=== PATIENT | female | born 1965 | race Caucasian/White ===

== ENCOUNTER → 2016-06-14 | Outpatient (CLI) | payer MEDICAID | LOC: SP 09:16 | PROVIDERS: ATTEND Physician Assistant | DX: R60.0 Localized edema (principal) | CPT/HCPCS: 93971 ==

== ENCOUNTER 2017-11-01 22:16 | Emergency (ER) | payer MEDICAID ==
[2017-11-01 22:34] VITALS: BP 125/73
[2017-11-01] MEDS ORDERED: METHYLPREDNISOLONE INJ 125 MG/2 ML SDV IV ONE (22:46)
[2017-11-01] MEDS ORDERED: DIPHENHYDRAMINE HCL 50 MG/ML VIAL IV ONE (22:46)
[2017-11-01] MEDS ORDERED: FAMOTIDINE INJ/PF 20 MG/2 ML SDV IV ONE (22:47)
--- NOTE | 2017-11-01 22:52 | ER Document Report ---
ED General - General Chief Complaint: Possible allergic reaction Stated Complaint: POSSIBLE ALLERGIC REACTION Time Seen by Provider: 11/01/17 22:39 Mode of Arrival: Medic Information source: Patient TRAVEL OUTSIDE OF THE [place] IN LAST 30 DAYS: No - HPI Notes: Patient is a 52-year-old female history of COPD presents to the emergency department with report that at 1900 she had to now with mayonnaise which she stated tasted fine but shortly thereafter she noted she was having itching and mild swelling around the lips with an allergic reaction. The patient denies any previous allergy to seafood that she is aware of. The patient reports no difficulty breathing or chest pain. The patient was picked up by EMS that gave her intramuscular epinephrine 0.3 mg and Benadryl 25 mg IV with improvement in her symptoms. The patient denies any abdominal pain, vomiting, fever. She reports previous mild nausea. - Related Data Allergies/Adverse Reactions: Shellfish * [Shellfish] Allergy (Verified 06/04/13 10:00) Sulfa (Sulfonamide Antibiotics) Allergy (Verified 06/04/13 10:00) morphine [Morphine] Adverse Reaction (Mild, Verified 06/04/13 10:00) Unknown reaction Past Medical History - General Information source: Patient - Social History Smoking Status: Former Smoker Frequency of alcohol use: None Drug Abuse: None Lives with: Alone Family History: Reviewed & Not Pertinent - Past Medical History Cardiac Medical History: Reports: Hx Hypertension Pulmonary Medical History: Reports: Hx COPD, Hx Sleep Apnea - Hx of CPAP use at home Denies: Hx Tuberculosis Malignancy Medical History: Reports: Hx Cervical Cancer Musculoskeletal Medical History: Reports Hx Arthritis Past Surgical History: Reports: Hx Abdominal Surgery - Resection, Hx Cholecystectomy - [address] Cooley., Hx Hysterectomy - over 10 yrs ago., Hx Orthopedic Surgery - 3 back surgeries. Denies: Hx Pacemaker - Immunizations Hx Diphtheria, Pertussis, Tetanus Vaccination: Yes Review of Systems - Review of Systems Notes: REVIEW OF SYSTEMS: CONSTITUTIONAL : Denies fever, chills, or sweats. EENT: Denies eye, ear, throat, or mouth pain or symptoms. Denies nasal or sinus congestion or discharge. Denies throat, tongue, or mouth swelling or difficulty swallowing. CARDIOVASCULAR: Denies chest pain. Denies palpitations or racing or irregular heart beat. Denies ankle edema. RESPIRATORY: Denies cough, cold, or chest congestion. Denies shortness of breath. GASTROINTESTINAL: Denies abdominal pain or distention. Denies vomiting, or diarrhea. Denies blood in vomitus, stools, or per rectum. Denies black, tarry stools. Denies constipation. GENITOURINARY: Denies difficulty urinating, painful urination, burning, frequency, blood in urine, or discharge. FEMALE GENITOURINARY: Denies vaginal bleeding, heavy or abnormal periods, irregular periods. Denies vaginal discharge or odor. MUSCULOSKELETAL: Denies back or neck pain or stiffness. Denies joint pain or swelling. SKIN: Denies lesions or sores. HEMATOLOGIC : Denies easy bruising or bleeding. LYMPHATIC: Denies swollen, enlarged glands. NEUROLOGICAL: Denies confusion or altered mental status. Denies passing out or loss of consciousness. Denies dizziness or lightheadedness. Denies headache. Denies weakness or paralysis or loss of use of either side. Denies problems with gait or speech. Denies sensory loss, numbness, or tingling. Denies seizures. PSYCHIATRIC: Denies anxiety or stress. Denies depression, suicidal ideation, or homicidal ideation. ALL OTHER SYSTEMS REVIEWED AND NEGATIVE. Dictation was performed using [employer] voice recognition software Physical Exam - Vital signs Vitals: Temp Pulse Resp BP Pulse Ox 99.2 F 89 18 125/73 94 11/01/17 22:31 11/01/17 22:31 11/01/17 22:31 11/01/17 22:31 11/01/17 22:31 - Notes Notes: PHYSICAL EXAMINATION: GENERAL: Well-appearing, well-nourished and in no acute distress. HEAD: Atraumatic, normocephalic. EYES: Pupils equal round and reactive to light, extraocular movements intact, conjunctiva are normal. Minimal eyelid edema which patient states is currently improved. ENT: Nares patent, oropharynx clear without exudates. Moist mucous membranes. NECK: Normal range of motion, supple without lymphadenopathy LUNGS: Breath sounds coarse bilaterally with scant expiratory wheeze, but patient denies any dyspnea. HEART: Regular rate and rhythm without murmurs ABDOMEN: Soft, nontender, nondistended abdomen. No guarding, no rebound. No masses appreciated. Female : deferred Musculoskeletal: Normal range of motion, no pitting or edema. No cyanosis. NEUROLOGICAL: Cranial nerves grossly intact. Normal speech, normal gait. Normal sensory, motor exams PSYCH: Normal mood, normal affect. SKIN: Warm, Dry, normal turgor, no rashes or lesions noted. Course - Re-evaluation Re-evalutation: 11/01/17 22:51 Patient was given IV Benadryl and IV Solu-Medrol. 11/01/17 23:52 On repeat exam patient had stable vital signs and no recurrence of rash and felt stable for discharge. - Vital Signs Vital signs: Temp Pulse Resp BP Pulse Ox 99.2 F 89 18 125/73 94 11/01/17 22:31 11/01/17 22:31 11/01/17 22:31 11/01/17 22:31 11/01/17 22:31 Discharge - Discharge Clinical Impression: Allergic reaction Qualifiers: Encounter type: initial encounter Qualified Code(s): T78.40XA - Allergy, unspecified, initial encounter Condition: Stable Disposition: HOME, SELF-CARE Instructions: Acute Allergic Reaction ([facility]) Additional Instructions: Take Benadryl 25 up to 50 mg every 4 hours as needed for itching or allergic symptoms. Return to the emergency department case of difficulty breathing or oropharyngeal swelling. Prescriptions: Prednisone [Deltasone 10 mg Tablet] 10 mg PO ASDIR PRN #21 tablet PRN Reason: Referrals: KAYLA MOON PA-C [Primary Care Provider] - Follow up as needed
[2017-11-01] MEDS ORDERED: OXYCODONE HCL IR 5 MG TABLET PO ONE (23:50)
== END 2017-11-02 00:15 | disposition home or self-care (01) ==
LOC: ER 22:16
DX: T78.40XA Allergy, unspecified, initial encounter (principal); X58.XXXA Exposure to other specified factors, initial encounter; J44.9 Chronic obstructive pulmonary disease, unspecified; I10 Essential (primary) hypertension; Z88.6 Allergy status to analgesic agent; Z88.2 Allergy status to sulfonamides; Z91.013 Allergy to seafood; Z87.891 Personal history of nicotine dependence; Z85.41 Personal history of malignant neoplasm of cervix uteri; Z90.49 Acquired absence of other specified parts of digestive tract; Z90.710 Acquired absence of both cervix and uterus
CPT/HCPCS: 99283; 96374; 96375; J1200; J2930; S0028; J3490

== ENCOUNTER 2018-03-22 18:44 | Emergency (ER) | payer MEDICAID ==
[2018-03-22] MEDS ORDERED: HYDROMORPHONE HCL INJ/PF 2 MG/ML AMPULE IV ONE (21:55)
[2018-03-22] MEDS ORDERED: ONDANSETRON HCL INJ/PF 4 MG/2 ML SDV IV ONE (21:55)
[2018-03-22 22:14] LABS: ABSOLUTE BASOPHILS # (AUTO) 0.1 10^3/uL (0.0-0.2); ABSOLUTE EOSINOPHILS # (AUTO) 0.5 10^3/uL (0.0-0.6); ABSOLUTE LYMPHOCYTES (AUTO) 1.9 10^3/uL (0.5-4.7); ABSOLUTE MONOCYTES (AUTO) 0.8 10^3/uL (0.1-1.4); ABSOLUTE NEUT (AUTO) 8.2 10^3/uL (1.7-8.2); BASOPHILS % (AUTO) 0.8 % (0-2); HEMATOCRIT 40.4 % (36.0-47.0); HEMOGLOBIN 13.8 g/dL (12.0-15.5); LYMPHOCYTES % (AUTO) 16.7 % (13-45); MEAN CORPUSCULAR HEMOGLOBIN 30.5 pg (27.0-33.4); MEAN CORPUSCULAR HGB CONC 34.1 g/dL (32.0-36.0); MEAN CORPUSCULAR VOLUME 90 fl (80-97); MONOCYTES % (AUTO) 7.2 % (3-13); PLATELET COUNT 563 10^3/uL (150-450); RED BLOOD COUNT 4.52 10^6/uL (3.72-5.28); RED CELL DISTRIBUTION WIDTH 14.7 % (11.5-14.0); SEGMENTED NEUTROPHILS % (AUTO) 71.3 % (42-78); TOTAL CELLS COUNTED % (AUTO) 100 %; WHITE BLOOD COUNT 11.6 10^3/uL (4.0-10.5)
[2018-03-22 22:26] LABS: ALANINE AMINOTRANSFERASE 10 U/L (9-52); ALBUMIN 4.3 g/dL (3.5-5.0); ALKALINE PHOSPHATASE 126 U/L (38-126); ANION GAP 12 (5-19); ASPARTATE AMINO TRANSFERASE 17 U/L (14-36); BILIRUBIN,DIRECT 0.3 mg/dL (0.0-0.4); BILIRUBIN,TOTAL 0.4 mg/dL (0.2-1.3); BLOOD UREA NITROGEN 18 mg/dL (7-20); CALCIUM 10.7 mg/dL (8.4-10.2); CARBON DIOXIDE 26 mmol/L (22-30); CHLORIDE 100 mmol/L (98-107); GLUCOSE 105 mg/dL (75-110); POTASSIUM 4.6 mmol/L (3.6-5.0)
--- NOTE | 2018-03-22 22:26 | RADIOLOGY REPORT (SQ) ---
EXAM DESCRIPTION: CT ABDOMEN PELVIS WITHOUT IV CONTRAST COMPLETED DATE/TME: 03/22/2018 21:54 CLINICAL HISTORY: 52 years, Female, left flank pain/ ? kidney stone/ COMPARISON: 11/07/2015 CT TECHNIQUE: 295 Images stored on PACS. All CT scanners at this facility use dose modulation, iterative reconstruction, and/or weight based dosing when appropriate to reduce radiation dose to as low as reasonably achievable (ALARA). [facility]: Dose Right [facility]: CareDose [facility]: Dose Right [facility]: Teradose 4D [facility]: [employer] LIMITATIONS: None. FINDINGS: Limited evaluation of the lung bases shows partial visualization of a soft tissue mass in the left lung base, abutting the left heart border. This measures approximately 7.5 x 5.4 cm. There are adjacent satellite nodules and reticulonodular change. Findings are concerning for malignancy. Osseous structures show postsurgical changes of the lumbar spine. Osseous structures are otherwise grossly intact. The liver, spleen, adrenal glands, pancreas, kidneys are unremarkable. Negative for urinary tract calculus or hydronephrosis. The gallbladder is present. Large amount stool in the colon. No gross evidence for bowel obstruction. Surgical clips in the pelvis. Per history given, the patient is status post hysterectomy. The previously noted cystic mass in the right hemipelvis described on prior CT is not present on this exam. What appears to be a normal appendix. Mild atheromatous change. IMPRESSION: Negative for acute intra-abdominal/pelvic process. However, there is partial visualization of a large soft tissue mass of the left lung base abutting the left heart border, highly concerning for malignancy. Tissue diagnosis recommended. TECHNICAL DOCUMENTATION: Quality ID # [id number]: Final reports with documentation of one or more dose reduction techniques (e.g., Automated exposure control, adjustment of the mA and/or kV according to patient size, use of iterative reconstruction technique) copyright 2011 [employer]- All Rights Reserved
[2018-03-23 00:40] LABS: APPEARANCE,URINE SLIGHTLY-CLOUDY; BILIRUBIN,URINE NEGATIVE (NEGATIVE); COLOR,URINE YELLOW; GLUCOSE, URINE NEGATIVE (NEGATIVE); KETONES,URINE NEGATIVE (NEGATIVE); LEUKOCYTE ESTERASE,URINE NEGATIVE (NEGATIVE); NITRITE,URINE NEGATIVE (NEGATIVE); PROTEIN,URINE NEGATIVE (NEGATIVE); URINE SPECIFIC GRAVITY 1.015; UROBILINOGEN,URINE NEGATIVE mg/dL (<2.0)
[2018-03-23] MEDS ORDERED: HYDROMORPHONE HCL INJ/PF 2 MG/ML AMPULE IV ONE (01:22)
[2018-03-23] MEDS ORDERED: LORAZEPAM INJ 2 MG/1 ML VIAL IV ONE ×3 (01:22→02:41)
--- NOTE | 2018-03-23 01:31 | ER Document Report ---
ED General - General Chief Complaint: Back Pain Stated Complaint: BACK PAIN Time Seen by Provider: 03/22/18 21:37 Mode of Arrival: Medic Information source: Patient Notes: Patient is a 52-year-old female comes into the emergency room by EMS with a complaint of left-sided low back and flank pain. Patient states that when she takes a deep breath or when she takes and coughs she gets a severe pain in her lower left back. She has had 3 histories of back surgeries and is currently in pain management for that. She states this pain is nothing like she is ever experienced before. Also states that when she lays on her right side it seems to dissipate the pain for a while. She has had nausea but no vomiting. She denies any traumatic events. And she was just laying down when the pain earlene denly hit her. She has a history of hypertension heart arrhythmias but she does not have a history of diabetes. She does continue to smoke a pack of cigarettes a day. TRAVEL OUTSIDE OF THE [place] IN LAST 30 DAYS: No - HPI Onset: This morning Onset/Duration: Sudden, Persistent, Worse Quality of pain: Sharp, Stabbing, Throbbing Severity: Severe Pain Level: 5 Associated symptoms: Nonproductive cough, Nausea Exacerbated by: Standing, Movement, Coughing, Deep breathing Relieved by: Denies, Remaining still, Other - On the right side Similar symptoms previously: No Recently seen / treated by doctor: No - Related Data Allergies/Adverse Reactions: Shellfish * [Shellfish] Allergy (Verified 03/22/18 18:49) Sulfa (Sulfonamide Antibiotics) Allergy (Verified 03/22/18 18:49) morphine [Morphine] Adverse Reaction (Mild, Verified 03/22/18 18:49) Unknown reaction Past Medical History - General Information source: Patient - Social History Smoking Status: Current Every Day Smoker Cigarette use (# per day): Yes - 1 pack a day Smoking Education Provided: Yes Frequency of alcohol use: Occasional Drug Abuse: None Lives with: Alone Family History: Reviewed & Not Pertinent Patient has suicidal ideation: No Patient has homicidal ideation: No - Past Medical History Cardiac Medical History: Reports: Hx Hypertension Pulmonary Medical History: Reports: Hx COPD, Hx Sleep Apnea - Hx of CPAP use at home Denies: Hx Tuberculosis Renal/ Medical History: Denies: Hx Peritoneal Dialysis Malignancy Medical History: Reports: Hx Cervical Cancer Musculoskeletal Medical History: Reports Hx Arthritis Past Surgical History: Reports: Hx Abdominal Surgery - Resection, Hx Cholecystectomy - [address] Co[address]., Hx Hysterectomy, Hx Orthopedic Surgery - 3 back surgeries. Denies: Hx Pacemaker - Immunizations Hx Diphtheria, Pertussis, Tetanus Vaccination: Yes Review of Systems - Review of Systems Constitutional: No symptoms reported EENT: No symptoms reported Cardiovascular: No symptoms reported Respiratory: See HPI, Cough, Hurts to breathe Gastrointestinal: Nausea Genitourinary: No symptoms reported Female Genitourinary: No symptoms reported Musculoskeletal: See HPI, Back pain Skin: No symptoms reported Hematologic/Lymphatic: No symptoms reported Neurological/Psychological: No symptoms reported -: Yes All other systems reviewed and negative Physical Exam - Vital signs Vitals: Temp Pulse Resp BP Pulse Ox 99.1 F 96 16 134/103 H 97 03/22/18 18:56 03/22/18 18:56 03/22/18 18:56 03/22/18 18:56 03/22/18 18:56 Interpretation: Hypertensive - Notes Notes: PHYSICAL EXAMINATION: GENERAL: Patient is a well-nourished well-developed 52-year-old female who on physical exam this evening is in no apparent distress but does appear to be in moderate amount of pain and discomfort. She is having a difficult time finding a position of comfort. HEAD: Atraumatic, normocephalic. EYES: Pupils equal round and reactive to light, extraocular movements intact, conjunctiva are normal. ENT: Nares patent, oropharynx clear without exudates. Moist mucous membranes. NECK: Normal range of motion, supple without lymphadenopathy LUNGS: auscultation patient's lung batres show she has bilateral breath sounds with breath sounds decreased moderately throughout all batres. There is no notable rhonchi, wheeze, rales. HEART: Regular rate and rhythm without murmurs ABDOMEN: Soft, nontender, No guarding, no rebound. No masses appreciated. Percussion of patient's left flank area down to the lower back shows a moderate to pronounced response to pain. The patient supine and palpation of the left upper and lower quads while compressing from the posterior shows increased ervin unt of tenderness and pain to the upper and lower quads of the abdomen. Patient's bowel sounds are present in all 4 quads. There is no peritoneal signs. Female : deferred Musculoskeletal: Examination patient's area of concern is her left lower back area. Palpation of the lumbar spine area does not produce any discomfort or pain in her no paravertebral spasms are felt. Moving to the left and slightly up patient exhibits moderate amount of discomfort to percussion as well as to palpation against pressure. NEUROLOGICAL:. Normal speech, normal gait. Normal sensory, motor exams PSYCH: Normal mood, normal affect. SKIN: Warm, Dry, normal turgor, no rashes or lesions noted. Course - Re-evaluation Re-evalutation: 03/23/18 01:23 I discussed my findings with Dr. Valentina Spann and my concerns about patient's incidental findings. Patient CT shows that they saw incidentally a soft tissue mass in the left lung base abutting the left heart border. This measures approximately 7.5 x 5.4 cm and there are adjacent satellite nodules and reticulonodular change. Findings are concerning for malignancy. I went to sit down at the patient's bedside and started out the conversation by talking about the possibilities of why she is hurting in the left side of her low back. She also was noted to have some blood in her urine which did not show signs of infection. Patient has had a hysterectomy so she should not have any blood in that area unless it is coming from the bladder. Without infection having concerns about that being possible site of the possible cancer or any other metastatic site.. Patient does smoke fairly heavily and continues to smoke a pack a day. I did not cover why the blood is in her urine with her tonight. I did cover with her that she has a lot of stool and that we did find this incidental mass finding that is going to need further investigation. Patient started crying when I started telling her this and then she stopped in the middle and stated she thought something was wrong. She is been experiencing some pain in her lung for the past couple of weeks but she did not want to approach it. Her mother of lung cancer and her sister has just been diagnosed with lung cancer. So patient is highly aware of the possibilities at this time. We had a long talk that there is no need for me to do this emergently that she can follow-up with her primary care doctor who is at [facility]. She will go see him first thing today when she wakes up. I am going to give her a copy of the CT report and her lab work and I am going to going to give her a dose of pain medication and a small dose of Ativan so she can sleep tonight. She is going to use milk of magnesia to clean herself out. After sitting down and having this discussion patient feels I think a little more relieved that she is been forced to give into the idea that there is something going on. So her low back pain may be caused by this mass that is causing referred pain when she takes a deep breath I do not know at this point. She is on pain medication currently and goes the pain management so we do not have to write for any more of that medication. She is to follow-up with her primary first thing today when she wakes up. 03/23/18 13:14 - Vital Signs Vital signs: Temp Pulse Resp BP Pulse Ox 98.5 F 103 H 16 122/83 97 03/23/18 02:37 03/23/18 02:37 03/22/18 18:56 03/23/18 02:37 03/23/18 02:37 - Laboratory Result Diagrams: 03/22/18 17:59 03/22/18 17:59 Laboratory results interpreted by me: 03/22/18 03/22/18 03/23/18 17:59 17:59 00:10 WBC 11.6 H RDW 14.7 H Plt Count 563 H Est GFR (Non-Af Amer) 58 L Calcium 10.7 H Urine Blood MODERATE H Discharge - Discharge Clinical Impression: Lung mass Back pain Qualifiers: Back pain location: low back pain Chronicity: acute Back pain laterality: left Sciatica presence: without sciatica Qualified Code(s): M54.5 - Low back pain Constipation Qualifiers: Constipation type: drug induced constipation Qualified Code(s): K59.03 - Drug induced constipation Condition: Stable Disposition: HOME, SELF-CARE Instructions: Constipation ([facility]), Hematuria ([facility]), Low Back Pain ([facility]), Muscle Strain ([facility]), Oral Narcotic Medication ([facility]) Additional Instructions: Constipation Constipation is a common problem. It is especially likely as you get older. Constipation is a common cause of abdominal pain, but sometimes causes no symptoms at all. Causes of constipation include certain medications, deh ydration, diets, inactivity, and low-fiber intake. Rarely, it can be a symptom of underlying disease. The physician has evaluated you for this. Avoid constipation by eating a diet high in fiber, fruits, and vegetables. Drink plenty of liquids. Get regular exercise. If possible, avoid const ipating medicines like narcotic pain medication. Some vitamin tablets can cause constipation. Stool softeners may be needed for difficult cases. An excellent stool softener is Konsyl which is available at [employer], and [employer]. Just add a teaspoon to a glass of pineapple or orange juice daily or twice a day if needed. Laxatives are useful for occasional constipation. You should use them only when necessary. Too-frequent use can make your bowels dependent on them. Some over the counter laxatives available without prescription are: Dulcolax, 5 mg pill or 10 mg suppository. Citrate of Magnesia, 4-5 ounces a day for a day or two For acute constipation, Fleet's Enemas and Dulcolax suppositories are helpful. Chronic, residential use of laxatives or enemas is not a good idea. Your bowel may become dependant on them. You do not need to have a bowel movement every day. Many people do fine with a bowel movement every three or four days. You should call your doctor or return for re-evaluation if you pass blood in the stool, or if you develop fever or increasing abdominal pain. As we discussed for the constipation Get generic milk of magnesia on your home tonight. It comes with a measuring cup on top of the looks like a shot Glass. That is 30 mL's drink you 2 of those before going to bed followed by 12 ounces of warm tap water. In the morning when you wake up drink a hot coffee or tea this will stimulate you to have a nice fluid bowel movement. By moving the stool around hopefully will reduce the discomfort and pain you feel in your back. As we discussed the incidental finding of the lung mass on your CT is important that you follow-up with your primary care provider for further intervention. You will probably need a PET scan as well as a CTA of the chest for further clarification of the type of mass that is. And will probably also need a biopsy. At this point it is imperative that you do this as soon as possible but is not emergent tonight for us to do here. You have a primary care provider at [facility] contact them first thing tomorrow and take in with you the CT report that I have given you with that was done here and also discussed your constipation and the back pain that is a little unusual. Should you have any other concerns or problems please do not hesitate to return to ER. Forms: Elevated Blood Pressure, Smoking Cessation Education Referrals: AMIRA LEAL MD [Primary Care Provider] - Follow up as needed
[2018-03-23 03:09] VITALS: BP 122/83
== END 2018-03-23 02:55 | disposition home or self-care (01) ==
LOC: ER 18:44
DX: R91.8 Other nonspecific abnormal finding of lung field (principal); R10.9 Unspecified abdominal pain; M54.5 Low back pain; K59.03 Drug induced constipation; R05 Cough; R06.00 Dyspnea, unspecified; F17.210 Nicotine dependence, cigarettes, uncomplicated; I10 Essential (primary) hypertension; Z88.2 Allergy status to sulfonamides; Z88.6 Allergy status to analgesic agent; Z90.49 Acquired absence of other specified parts of digestive tract
CPT/HCPCS: 96376; 99284; 96374; 96375; 36415; 85025; 80053; 81001; 74176; J1170 ×2; J2060; J2405

== ENCOUNTER 2018-06-09 16:03 | Inpatient (IN) | payer MEDICAID ==
[2018-06-09] MEDS ORDERED: NORMAL SALINE 1000 ML 1,000 ML IV ONE (16:48)
[2018-06-09] MEDS ORDERED: IPRATROPIUM/ALBUTEROL 0.5-2.5 MG/3 ML AMPUL NEB ONE (16:49)
[2018-06-09] MEDS ORDERED: ALBUTEROL SULFATE 0.083% NEB 2.5 MG/3 ML AMPUL NEB ONE (16:49)
[2018-06-09] MEDS ORDERED: METHYLPREDNISOLONE INJ 125 MG/2 ML SDV IV ONE (16:49)
[2018-06-09 16:52] LABS: ALANINE AMINOTRANSFERASE 37 U/L (9-52); ALBUMIN 3.2 g/dL (3.5-5.0); ALKALINE PHOSPHATASE 356 U/L (38-126); ANION GAP 14 (5-19); ASPARTATE AMINO TRANSFERASE 36 U/L (14-36); BILIRUBIN,DIRECT 0.4 mg/dL (0.0-0.4); BILIRUBIN,TOTAL 0.5 mg/dL (0.2-1.3); BLOOD UREA NITROGEN 13 mg/dL (7-20); CALCIUM 9.4 mg/dL (8.4-10.2); CARBON DIOXIDE 27 mmol/L (22-30); CHLORIDE 91 mmol/L (98-107); GLUCOSE 136 mg/dL (75-110); POTASSIUM 4.2 mmol/L (3.6-5.0); SODIUM 131.5 mmol/L (137-145); TOTAL PROTEIN 6.3 g/dL (6.3-8.2)
[2018-06-09] MEDS ORDERED: CEFTRIAXONE INJ 1000 MG VIAL IV ONE (16:55)
--- NOTE | 2018-06-09 16:55 | ER Document Report ---
ED General - General Chief Complaint: Breathing Difficulty Stated Complaint: DIFFICULTY BREATHING Time Seen by Provider: 06/09/18 16:30 Primary Care Provider: AMIRA LEAL MD [Primary Care Provider] - Follow up as needed TRAVEL OUTSIDE OF THE [place] IN LAST 30 DAYS: No - HPI Notes: Patient is a 52-year-old female that presents to the emergency department for chief complaint of chest pain and shortness of breath. Patient states she was recently diagnosed with lung cancer on the left in March 2018. She has not started chemotherapy yet. She reports being on 2 L nasal cannula oxygen at home. She states she has been progressively getting more short of breath over the last few days however became significantly worse today. She states she has a new pain on the right side of her chest under her right breast. The pain is sharp and worse with movement and breathing. She denies history of DVT/PE. Patient denies being on blood thinning medications. She has used her albuterol inhaler 2 times today with minimal short-term improvement of symptoms. Past Medical History: Lung cancer Past Surgical History: Left lung biopsy Social History: Reviewed in chart Family History: Reviewed and noncontributory for presenting illness Allergies: Reviewed, see documented allergy list. REVIEW OF SYSTEMS: CONSTITUTIONAL : No fever No chills No diaphoresis No recent illness EENT: No vision changes No congestion No sore throat CARDIOVASCULAR: chest pain No palpitations RESPIRATORY: shortness of breath cough difficulty breathing GASTROINTESTINAL: No abdominal pain No nausea No vomiting No diarrhea GENITOURINARY: No dysuria No hematuria No difficulty urinating MUSCULOSKELETAL: No back pain No leg pain No arm pain SKIN: No rashes No lesions LYMPHATIC: No swollen, enlarged glands. NEUROLOGICAL: No lightheadedness No headache No weakness No paresthesias PSYCHIATRIC: No anxiety No depression PHYSICAL EXAMINATION: Vital signs reviewed, nursing noted reviewed. GENERAL: Well-appearing, well-nourished and in moderate acute distress. HEAD: Atraumatic, normocephalic. EYES: Eyes appear normal, extraocular movements intact, sclera anicteric, conjunctiva are normal. ENT: nares patent, oropharynx clear without exudates. Moist mucous membranes. NECK: Normal range of motion, supple without lymphadenopathy LUNGS: Breath sounds diminished with expiratory wheezing. Moderate accessory muscle use and prolonged expiratory phase. Tachypneic. Conversationally dyspneic. HEART: Tachycardic rate and regular rhythm without murmurs ABDOMEN: Soft, nontender, normoactive bowel sounds. No rebound, guarding, or rigidity. No masses appreciated. EXTREMITIES: Nontender, good range of motion, right leg pitting edema, normal left leg. NEUROLOGICAL: No focal neurological deficits. Moves all extremities spontaneously Motor and sensory grossly intact on exam. PSYCH: Anxious SKIN: Warm, Dry, normal turgor, no rashes or lesions noted on exposed skin - Related Data Allergies/Adverse Reactions: Shellfish * [Shellfish] Allergy (Verified 03/22/18 18:49) Sulfa (Sulfonamide Antibiotics) Allergy (Verified 03/22/18 18:49) morphine [Morphine] Adverse Reaction (Mild, Verified 03/22/18 18:49) Unknown reaction Past Medical History - Social History Smoking Status: Unknown if Ever Smoked Family History: Reviewed & Not Pertinent - Past Medical History Cardiac Medical History: Reports: Hx Hypertension Pulmonary Medical History: Reports: Hx COPD, Hx Sleep Apnea - Hx of CPAP use at home Denies: Hx Tuberculosis Renal/ Medical History: Denies: Hx Peritoneal Dialysis Malignancy Medical History: Reports: Hx Cervical Cancer Musculoskeletal Medical History: Reports Hx Arthritis Past Surgical History: Reports: Hx Abdominal Surgery - Resection, Hx Cholecystectomy - [address] Cooley., Hx Hysterectomy, Hx Orthopedic Surgery - 3 back surgeries. Denies: Hx Pacemaker - Immunizations Hx Diphtheria, Pertussis, Tetanus Vaccination: Yes Physical Exam - Vital signs Vitals: Temp Resp 99.0 F 22 H 06/09/18 16:14 06/09/18 16:14 Course - Re-evaluation Re-evalutation: 06/09/18 16:54 Vitals reviewed. Nursing notes reviewed. Patient is oxygenating on 3 L nasal cannula. She does have increased work of breathing. Patient received 125 mg of Solu-Medrol, 200 mcg of fentanyl, 1 g p.o. Ativan, 4 mg IV Zofran, 975 mg of Tylenol, and one DuoNeb by EMS prior to arrival in the emergency room. Patient will be given more albuterol and DuoNeb for her increased wheezing and shortness of breath. She was also given aspirin for her complaint of chest pain. She is tachycardic and has a temperature of 99 after receiving Tylenol. I am concerned for sepsis in this patient. Lactate and blood cultures have been ordered. Patient started on IV fluids and broad-spectrum antibiotics. She does have asymmetric swelling of her lower extremities and a new diagnosis of cancer which is concerning for underlying DVT/PE. Patient states she always has asymmetric swelling of her legs because of a cancer in the right leg when she was 31 years old. She denies any change in the appearance of her right leg edema today. 06/09/18 20:[address] of the chest shows no pulmonary embolism. She does have a large loculated left pleural effusion which is likely causing her dyspnea. ABG shows no acute hypoxia however she has had a moderate amount of increased work of breathing, her respiratory status has improved while in the emergency room. She is mildly hypercapnic with no acid-base disturbance. Patient's troponin is negative and her chest pain is also likely related to this large effusion, I do not currently suspect ACS with her normal appearing EKG and negative troponin. Patient's blood work also shows a significant thrombocytosis and new anemia. Laboratory 06/09/18 06/09/18 06/09/18 16:25 16:25 17:09 WBC 14.4 H RBC 3.17 L Hgb 8.8 L Hct 26.4 L MCV 83 MCH 27.6 MCHC 33.2 RDW 16.1 H Plt Count 1028 H* Total Counted 100 Seg Neutrophils % Not Reportable Seg Neuts % (Manual) 97 H Lymphocytes % Not Reportable Lymphocytes % (Manual) 2 L Monocytes % Not Reportable Monocytes % (Manual) 1 L Eosinophils % Not Reportable Eosinophils % (Manual) 0 Basophils % Not Reportable Basophils % (Manual) 0 Absolute Neutrophils Not Reportable Abs Neuts (Manual) 14.0 H Absolute Lymphocytes Not Reportable Abs Lymphs (Manual) 0.3 L Absolute Monocytes Not Reportable Abs Monocytes (Manual) 0.1 Absolute Eosinophils Not Reportable Absolute Eos (Manual) 0.0 Absolute Basophils Not Reportable Abs Basophils (Manual) 0.0 Platelet Comment INCREASED Poikilocytosis 1+ Anisocytosis 1+ Tear Drop Cells SLIGHT Ovalocytes SLIGHT PT INR Carbonic Acid HCO3/H2CO3 Ratio ABG pH ABG pCO2 ABG pO2 ABG HCO3 ABG Total CO2 ABG O2 Saturation ABG Base Excess FiO2 Sodium 131.5 L Potassium 4.2 Chloride 91 L Carbon Dioxide 27 Anion Gap 14 BUN 13 Creatinine 0.54 Est GFR ( Amer) > 60 Est GFR (Non-Af Amer) > 60 Glucose 136 H Lactic Acid Calcium 9.4 Total Bilirubin 0.5 Direct Bilirubin 0.4 Neonat Total Bilirubin Not Reportable Neonat Direct Bilirubin Not Reportable Neonat Indirect Bili Not Reportable AST 36 ALT 37 Alkaline Phosphatase 356 H Troponin I < 0.012 Total Protein 6.3 Albumin 3.2 L Urine Color Urine Appearance Urine pH Ur Specific Sparkman Urine Protein Urine Glucose (UA) Urine Ketones Urine Blood Urine Nitrite Urine Bilirubin Urine Urobilinogen Ur Leukocyte Esterase Urine WBC (Auto) Urine RBC (Auto) Squamous Epi Cells Auto Urine Ascorbic Acid 06/09/18 06/09/18 06/09/18 17:09 17:17 17:22 WBC RBC Hgb Hct MCV MCH MCHC RDW Plt Count Total Counted Seg Neutrophils % Seg Neuts % (Manual) Lymphocytes % Lymphocytes % (Manual) Monocytes % Monocytes % (Manual) Eosinophils % Eosinophils % (Manual) Basophils % Basophils % (Manual) Absolute Neutrophils Abs Neuts (Manual) Absolute Lymphocytes Abs Lymphs (Manual) Absolute Monocytes Abs Monocytes (Manual) Absolute Eosinophils Absolute Eos (Manual) Absolute Basophils Abs Basophils (Manual) Platelet Comment Poikilocytosis Anisocytosis Tear Drop Cells Ovalocytes PT 15.0 INR 1.12 Carbonic Acid 1.41 H HCO3/H2CO3 Ratio 20:1 ABG pH 7.41 ABG pCO2 46.7 H ABG pO2 130.3 H ABG HCO3 29.2 H ABG Total CO2 30.6 H ABG O2 Saturation 98.6 H ABG Base Excess 3.9 FiO2 3L Sodium Potassium Chloride Carbon Dioxide Anion Gap BUN Creatinine Est GFR ( Amer) Est GFR (Non-Af Amer) Glucose Lactic Acid 1.3 Calcium Total Bilirubin Direct Bilirubin Neonat Total Bilirubin Neonat Direct Bilirubin Neonat Indirect Bili AST ALT Alkaline Phosphatase Troponin I Total Protein Albumin Urine Color Urine Appearance Urine pH Ur Specific Sparkman Urine Protein Urine Glucose (UA) Urine Ketones Urine Blood Urine Nitrite Urine Bilirubin Urine Urobilinogen Ur Leukocyte Esterase Urine WBC (Auto) Urine RBC (Auto) Squamous Epi Cells Auto Urine Ascorbic Acid 06/09/18 20:00 WBC RBC Hgb Hct MCV MCH MCHC RDW Plt Count Total Counted Seg Neutrophils % Seg Neuts % (Manual) Lymphocytes % Lymphocytes % (Manual) Monocytes % Monocytes % (Manual) Eosinophils % Eosinophils % (Manual) Basophils % Basophils % (Manual) Absolute Neutrophils Abs Neuts (Manual) Absolute Lymphocytes Abs Lymphs (Manual) Absolute Monocytes Abs Monocytes (Manual) Absolute Eosinophils Absolute Eos (Manual) Absolute Basophils Abs Basophils (Manual) Platelet Comment Poikilocytosis Anisocytosis Tear Drop Cells Ovalocytes PT INR Carbonic Acid HCO3/H2CO3 Ratio ABG pH ABG pCO2 ABG pO2 ABG HCO3 ABG Total CO2 ABG O2 Saturation ABG Base Excess FiO2 Sodium Potassium Chloride Carbon Dioxide Anion Gap BUN Creatinine Est GFR ( Amer) Est GFR (Non-Af Amer) Glucose Lactic Acid Calcium Total Bilirubin Direct Bilirubin Neonat Total Bilirubin Neonat Direct Bilirubin Neonat Indirect Bili AST ALT Alkaline Phosphatase Troponin I Total Protein Albumin Urine Color YELLOW Urine Appearance CLEAR Urine pH 6.0 Ur Specific Sparkman 1.020 Urine Protein NEGATIVE Urine Glucose (UA) NEGATIVE Urine Ketones NEGATIVE Urine Blood SMALL H Urine Nitrite NEGATIVE Urine Bilirubin NEGATIVE Urine Urobilinogen NEGATIVE Ur Leukocyte Esterase NEGATIVE Urine WBC (Auto) 1 Urine RBC (Auto) 3 Squamous Epi Cells Auto 2 Urine Ascorbic Acid NEGATIVE Chest X-Ray 06/09/18 16:30 IMPRESSION: Moderate size left pleural effusion. Chest/Abdomen CTA 06/09/18 16:50 IMPRESSION: 1. Large, loculated left-sided pleural effusion. Atelectasis in the left lung base with no definite mass lesions identified, however recommend reimaging after resolution to ensure no underlying mass. 2. No evidence of pulmonary embolus. 06/09/18 20:26 Patient's care was discussed with Dr. Banuelos who feel she is requiring a facility capable of doing VATS because of the large effusion and loculations. Patient's oncologist Dr. Jeffrey is at [facility]. She will be transferred to [facility] for further medical management and likely VATS procedure for her symptomatic large left pleural effusion. Patient in agreement with this plan of care. 06/09/18 21:04 Patient's care discussed with Dr. Ramsey at [facility] who accepts patient for transfer. - Vital Signs Vital signs: Temp Pulse Resp BP Pulse Ox 97.8 F 15 149/92 H 98 06/09/18 20:17 06/09/18 20:01 06/09/18 20:00 06/09/18 20:01 - Laboratory Result Diagrams: 06/09/18 17:09 06/09/18 16:25 Laboratory results interpreted by me: 06/09/18 06/09/18 06/09/18 16:25 17:09 17:22 WBC 14.4 H RBC 3.17 L Hgb 8.8 L Hct 26.4 L RDW 16.1 H Plt Count 1028 H* Seg Neuts % (Manual) 97 H Lymphocytes % (Manual) 2 L Monocytes % (Manual) 1 L Abs Neuts (Manual) 14.0 H Abs Lymphs (Manual) 0.3 L Carbonic Acid 1.41 H ABG pCO2 46.7 H ABG pO2 130.3 H ABG HCO3 29.2 H ABG Total CO2 30.6 H ABG O2 Saturation 98.6 H Sodium 131.5 L Chloride 91 L Glucose 136 H Alkaline Phosphatase 356 H Albumin 3.2 L Urine Blood 06/09/18 20:00 WBC RBC Hgb Hct RDW Plt Count Seg Neuts % (Manual) Lymphocytes % (Manual) Monocytes % (Manual) Abs Neuts (Manual) Abs Lymphs (Manual) Carbonic Acid ABG pCO2 ABG pO2 ABG HCO3 ABG Total CO2 ABG O2 Saturation Sodium Chloride Glucose Alkaline Phosphatase Albumin Urine Blood SMALL H - EKG Interpretation by Me Additional EKG results interpreted by me: 06/09/18 16:56 Interpreted by myself 1615: Sinus tachycardia, rate 113, normal axis, no ectopy, artifact in V1 V2, no ST elevation Discharge - Discharge Clinical Impression: Pleural effusion, left, Shortness of breath, Thrombocytosis, Hyponatremia Anemia Qualifiers: Anemia type: other cause Other causes of anemia: other cause, not classified Qualified Code(s): D64.89 - Other specified anemias Sepsis Qualifiers: Sepsis type: sepsis due to unspecified organism Qualified Code(s): A41.9 - Sepsis, unspecified organism Chest pain Qualifiers: Chest pain type: unspecified Qualified Code(s): R07.9 - Chest pain, unspecified Condition: Stable Disposition: [facility]
[2018-06-09] MEDS ORDERED: AZITHROMYCIN INJ 500 MG VIAL IV ONE (16:56)
[2018-06-09] MEDS ORDERED: ASPIRIN 81 MG TABLET, CHEWABLE PO ONE (16:57)
--- NOTE | 2018-06-09 17:10 | RADIOLOGY REPORT (SQ) ---
EXAM DESCRIPTION: CHEST SINGLE VIEW COMPLETED DATE/TIME: 06/09/2018 4:57 pm REASON FOR STUDY: dyspnea COMPARISON: 05/16/2011 and earlier EXAM PARAMETERS: NUMBER OF VIEWS: One view. TECHNIQUE: Single frontal radiographic view of the chest acquired. RADIATION DOSE: NA LIMITATIONS: None. FINDINGS: LUNGS AND PLEURA: Moderate size left pleural effusion. Right lung is clear. No pneumotho rax. MEDIASTINUM AND HILAR STRUCTURES: No masses. Contour normal. HEART AND VASCULAR STRUCTURES: Cardiac silhouette is partially obscured due to the adjacent lung path ology. Central pulmonary vasculature is normal. BONES: No acute findings. HARDWARE: None in the chest. OTHER: No other significant finding. IMPRESSION: Moderate size left pleural effusion. TECHNICAL DOCUMENTATION: JOB ID: [id number] [employer]- All Rights Reserved Reading location - IP/workstation name: [email or web address]
[2018-06-09 17:48] LABS: INTERNATIONAL RATION (INR) 1.12
[2018-06-09 17:49] LABS: ARTERIAL BLOOD BASE EXCESS 3.9 mmol/L; ARTERIAL BLOOD H2CO3 1.41 mmol/L (1.05-1.35); ARTERIAL BLOOD HCO3 29.2 mmol/L (20-24); ARTERIAL BLOOD O2 SATURATION 98.6 % (94-98); ARTERIAL BLOOD PCO2 46.7 mmHg (35-45); ARTERIAL BLOOD PH 7.41 (7.35-7.45); ARTERIAL BLOOD PO2 130.3 mmHg (80-100); ARTERIAL BLOOD TOTAL CO2 30.6 mmol/L (21-25)
[2018-06-09 17:50] LABS: HEMATOCRIT 26.4 % (36.0-47.0); HEMOGLOBIN 8.8 g/dL (12.0-15.5); MEAN CORPUSCULAR HEMOGLOBIN 27.6 pg (27.0-33.4); MEAN CORPUSCULAR HGB CONC 33.2 g/dL (32.0-36.0); MEAN CORPUSCULAR VOLUME 83 fl (80-97); RED BLOOD COUNT 3.17 10^6/uL (3.72-5.28); RED CELL DISTRIBUTION WIDTH 16.1 % (11.5-14.0); WHITE BLOOD COUNT 14.4 10^3/uL (4.0-10.5)
[2018-06-09 17:53] LABS: ARTERIAL BLOOD FIO2 3L
[2018-06-09] MEDS ORDERED: DIPHENHYDRAMINE HCL 50 MG CAPSULE PO ONE (17:56)
[2018-06-09 18:14] LABS: ABSOLUTE LYMPHOCYTES# (MANUAL) 0.3 10^3/uL (0.5-4.7); ABSOLUTE MONOCYTES # (MANUAL) 0.1 10^3/uL (0.1-1.4); BASOPHILS % (MANUAL) 0 % (0-2); EOSINOPHILS % (MANUAL) 0 % (0-6); LYMPHOCYTES % (MANUAL) 2 % (13-45); MONOCYTES % (MANUAL) 1 % (3-13); SEGMENTED NEUTROPHILS % (MAN) 97 % (42-78); TOTAL CELLS COUNTED 100
[2018-06-09 18:15] LABS: ANISOCYTOSIS 1+; OVALOCYTES SLIGHT; PLATELET COMMENT INCREASED; POIKILOCYTOSIS 1+; TEAR DROP CELLS SLIGHT
[2018-06-09] MEDS ORDERED: DIPHENHYDRAMINE HCL 50 MG/ML VIAL IV ONE (18:16)
[2018-06-09] MEDS ORDERED: FAMOTIDINE INJ/PF 20 MG/2 ML SDV IV ONE (18:16)
[2018-06-09 18:23] LABS: PLATELET COUNT 1028 10^3/uL (150-450)
[2018-06-09] MEDS ORDERED: METHYLPREDNISOLONE INJ 125 MG/2 ML SDV ONE (19:10)
--- NOTE | 2018-06-09 19:41 | RADIOLOGY REPORT (SQ) ---
EXAM DESCRIPTION: CTA CHEST COMPLETED DATE/TIME: 06/09/2018 7:24 pm REASON FOR STUDY: Breathing Diff COMPARISON: 05/14/2011 TECHNIQUE: CT scan of the chest performed using helical scanning technique with dynamic intravenous contrast injection. Images reviewed with lung, soft tissue and bone windows. Reconstructed coronal and sagittal MPR images reviewed. Additional 3 dimensional post-processing performed to develop Maximal Intensity Projection images (CT P). All images stored on PACS. All CT scanners at this facility use dose modulation, iterative reconstruction, and/or weight based d osing when appropriate to reduce radiation dose to as low as reasonably achievable (ALARA). [facility]: Dose Right [facility]: CareDose [facility]: Dose Right [facility]: Teradose 4D [facility]: [employer]zCentral CONTRAST TYPE AND DOSE: contrast/concentration: Isovue 350.00 mg/ml; Total Contrast Delivered: 70.0 ml; Total Saline Delivered: 70.0 ml 70 Omnipaque 350- low osmolar. Contrast bolus adequate for pulmonary arteries and aorta. RENAL FUNCTION: GFR > 60. RADIATION DOSE: CT Rad equipment meets quality standard of care and radiation dose reduction techniq ues were employed. CTDIvol: 14.3 - 19.8 mGy. DLP: 562 mGy-cm. . LIMITATIONS: None. FINDINGS: LUNGS AND PLEURA: Large left-sided, loculated pleural effusion. There is atelectatic cons olidation in the left lung base as well. There is some mild thickening of the pleura along the left upper mediastinum. No definite mass lesions identified. AORTA AND GREAT VESSELS: No aneurysm. Contrast bolus not optimized for the aorta. HEART: No pericardial effusion. No significant coronary artery calcifications. PULMONARY ARTERIES: No emboli visualized in the main pulmonary arteries or the segmental branches. HILAR AND MEDIASTINAL STRUCTURES: There are a few mildly enlarged prevascular lymph nodes present. N o other definite mediastinal adenopathy. HARDWARE: None in the chest. UPPER ABDOMEN: No significant findings. Limited exam. THYROID AND OTHER SOFT TISSUES: No masses. No adenopathy. BONES: No acute or significant finding. 3D MIPS: Confirm above findings. OTHER: No other significant finding. IMPRESSION: 1. Large, loculated left-sided pleural effusion. Atelectasis in the left lung base with no definite mass lesions identified, however recommend reimaging after resolution to ensure no under lying mass. 2. No evidence of pulmonary embolus. COMMENT: Quality ID # [id number]: Final reports with documentation of one or more dose reduction techniques (e.g., Automated exposure control, adjustment of the mA and/or kV according to patient size, use of iterative reconstruction technique) TECHNICAL DOCUMENTATION: JOB ID: [id number] [employer]- All Rights Reserved Reading location - IP/workstation name: [email or web address]
[2018-06-09 20:09] LABS: APPEARANCE,URINE CLEAR; BILIRUBIN,URINE NEGATIVE (NEGATIVE); COLOR,URINE YELLOW; GLUCOSE, URINE NEGATIVE (NEGATIVE); KETONES,URINE NEGATIVE (NEGATIVE); LEUKOCYTE ESTERASE,URINE NEGATIVE (NEGATIVE); NITRITE,URINE NEGATIVE (NEGATIVE); PROTEIN,URINE NEGATIVE (NEGATIVE); UROBILINOGEN,URINE NEGATIVE mg/dL (<2.0)
--- NOTE | 2018-06-09 21:12 | EKG REPORT ---
SEVERITY:- OTHERWISE NORMAL ECG - SINUS TACHYCARDIA : Confirmed by: Acosta Varghese MD 09-Jun-2018 21:11:46
[2018-06-10] MEDS ORDERED: HYDROMORPHONE HCL INJ/PF 2 MG/ML AMPULE IV ONE ×4 (05:13→21:29)
[2018-06-10 07:18] LABS: HEMATOCRIT 26.2 % (36.0-47.0); HEMOGLOBIN 8.7 g/dL (12.0-15.5); MEAN CORPUSCULAR HEMOGLOBIN 27.7 pg (27.0-33.4); MEAN CORPUSCULAR VOLUME 84 fl (80-97); PLATELET COUNT 886 10^3/uL (150-450); RED BLOOD COUNT 3.12 10^6/uL (3.72-5.28); RED CELL DISTRIBUTION WIDTH 16.5 % (11.5-14.0); WHITE BLOOD COUNT 13.6 10^3/uL (4.0-10.5)
[2018-06-10 07:31] LABS: ALANINE AMINOTRANSFERASE 28 U/L (9-52); ALBUMIN 2.5 g/dL (3.5-5.0); ALKALINE PHOSPHATASE 248 U/L (38-126); ANION GAP 10 (5-19); ASPARTATE AMINO TRANSFERASE 20 U/L (14-36); BILIRUBIN,DIRECT 0.3 mg/dL (0.0-0.4); BILIRUBIN,TOTAL 0.4 mg/dL (0.2-1.3); BLOOD UREA NITROGEN 12 mg/dL (7-20); CALCIUM 8.9 mg/dL (8.4-10.2); CARBON DIOXIDE 26 mmol/L (22-30); CHLORIDE 99 mmol/L (98-107); GLUCOSE 128 mg/dL (75-110); POTASSIUM 4.6 mmol/L (3.6-5.0); SODIUM 134.6 mmol/L (137-145); TOTAL PROTEIN 5.3 g/dL (6.3-8.2)
[2018-06-10 07:42] LABS: ABSOLUTE LYMPHOCYTES# (MANUAL) 0.3 10^3/uL (0.5-4.7); ABSOLUTE NEUTROPHILS# (MANUAL) 13.3 10^3/uL (1.7-8.2); BASOPHILS % (MANUAL) 0 % (0-2); EOSINOPHILS % (MANUAL) 0 % (0-6); LYMPHOCYTES % (MANUAL) 2 % (13-45); MONOCYTES % (MANUAL) 0 % (3-13); SEGMENTED NEUTROPHILS % (MAN) 98 % (42-78); TOTAL CELLS COUNTED 100
[2018-06-10 07:44] LABS: ANISOCYTOSIS 1+; HYPOCHROMASIA SLIGHT; OVALOCYTES SLIGHT; PLATELET COMMENT INCREASED; POIKILOCYTOSIS SLIGHT; POLYCHROMASIA 1+; TEAR DROP CELLS SLIGHT; TOXIC VACUOLATION PRESENT
[2018-06-10] MEDS: CEFTRIAXONE 1 GM/D5W RTU 1 GM/50 ML RTUPB IV SCH (09:48)
[2018-06-10] MEDS: AZITHROMYCIN INJ 500 MG VIAL IV SCH (11:38)
[2018-06-10] MEDS ORDERED: ALBUTEROL SULFATE 0.083% NEB 2.5 MG/3 ML AMPUL NEB ONE ×2 (14:39→14:40)
[2018-06-10 15:18] LABS: PATH REVIEW PATHOLOGIST REVIEWED
[2018-06-10] MEDS ORDERED: METHYLPREDNISOLONE INJ 125 MG/2 ML SDV IV ONE (16:33)
--- NOTE | 2018-06-10 16:39 | ER Document Report ---
Doctor's Note Notes: 06/10/18 16:37 Evaluated patient. She is complaining of difficulty breathing and wheezing. Says she has a history of COPD. She has been receiving nebulizers as needed since her admission here yesterday. She is also been given 125 mg of Solu- Medrol IV. She is also gotten plenty of IV antibiotics (Rocephin and Zithromax ). Will put the patient on DuoNeb's 4 times a day as needed and give her another dose of Solu-Medrol IV. Awaiting transfer to [facility] for removal of a moderate-sized left chest pleural effusion Gaby Bolanos MD
[2018-06-10] MEDS: IPRATROPIUM/ALBUTEROL 0.5-2.5 MG/3 ML AMPUL NEB PRN (16:54)
[2018-06-11] MEDS: IPRATROPIUM/ALBUTEROL 0.5-2.5 MG/3 ML AMPUL NEB PRN ×4 (00:23→20:28)
[2018-06-11] MEDS ORDERED: HYDROMORPHONE HCL INJ/PF 2 MG/ML AMPULE IV ONE (05:17)
--- NOTE | 2018-06-11 08:30 | ER Document Report ---
Entered by ALAN LIMON SCRIBE 06/11/18 0895 Acting as scribe for:NITISH PEÑALOZA DO Doctor's Note Notes: 06/11/18 08:23 Medical rounds: Patient is tearful and reports an increase in pain and reports she is hungry. States the doses of Dilaudid is not working and asks for 30mg of oxycodone. Patient understands plan and is agreeable. Patient is stable for transfer. 06/11/18 08:29 Discussed with patient that the last prescription I can find is for oxycodone 7.5 mg every 6 hours. Patient states she is agreeable to receiving this instead of the 30 mg that she requested. Patient is somewhat tearful. Denies any increasing shortness of breath. Patient is still stable for transfer. I personally performed the services described in the documentation, reviewed and edited the documentation which was dictated to the scribe in my presence, and it accurately records my words and actions.
[2018-06-11] MEDS: OXYCODONE HCL IR 5 MG TABLET PO PRN ×3 (08:50→22:39)
[2018-06-11] MEDS: CEFTRIAXONE 1 GM/D5W RTU 1 GM/50 ML RTUPB IV SCH (09:56)
[2018-06-11] MEDS: AZITHROMYCIN INJ 500 MG VIAL IV SCH (09:57)
[2018-06-11 11:25] LABS: ANION GAP 13 (5-19); BLOOD UREA NITROGEN 20 mg/dL (7-20); CALCIUM 10.1 mg/dL (8.4-10.2); CARBON DIOXIDE 29 mmol/L (22-30); CHLORIDE 94 mmol/L (98-107); GLUCOSE 207 mg/dL (75-110); POTASSIUM 5.1 mmol/L (3.6-5.0); SODIUM 135.5 mmol/L (137-145)
[2018-06-11 15:28] LABS: HEMATOCRIT 26.8 % (36.0-47.0); HEMOGLOBIN 8.7 g/dL (12.0-15.5); MEAN CORPUSCULAR HEMOGLOBIN 27.2 pg (27.0-33.4); MEAN CORPUSCULAR HGB CONC 32.6 g/dL (32.0-36.0); MEAN CORPUSCULAR VOLUME 83 fl (80-97); RED BLOOD COUNT 3.22 10^6/uL (3.72-5.28); RED CELL DISTRIBUTION WIDTH 16.4 % (11.5-14.0); WHITE BLOOD COUNT 22.2 10^3/uL (4.0-10.5)
[2018-06-11 16:08] LABS: ABSOLUTE LYMPHOCYTES# (MANUAL) 0.9 10^3/uL (0.5-4.7); ABSOLUTE MONOCYTES # (MANUAL) 0.7 10^3/uL (0.1-1.4); ABSOLUTE NEUTROPHILS# (MANUAL) 20.6 10^3/uL (1.7-8.2); BASOPHILS % (MANUAL) 0 % (0-2); EOSINOPHILS % (MANUAL) 0 % (0-6); LYMPHOCYTES % (MANUAL) 4 % (13-45); MONOCYTES % (MANUAL) 3 % (3-13); SEGMENTED NEUTROPHILS % (MAN) 93 % (42-78); TOTAL CELLS COUNTED 100
[2018-06-11 16:10] LABS: ANISOCYTOSIS 1+; OVALOCYTES SLIGHT; PLATELET COMMENT INCREASED; POIKILOCYTOSIS SLIGHT; POLYCHROMASIA SLIGHT
[2018-06-11 16:12] LABS: PLATELET COUNT 1093 10^3/uL (150-450)
[2018-06-11 16:13] LABS: TOXIC VACUOLATION PRESENT
[2018-06-11] MEDS: DOCUSATE SODIUM 100 MG CAPSULE PO SCH (23:18)
[2018-06-12] MEDS: OXYCODONE HCL IR 5 MG TABLET PO PRN (05:24)
[2018-06-12] MEDS: IPRATROPIUM/ALBUTEROL 0.5-2.5 MG/3 ML AMPUL NEB PRN (06:54)
[2018-06-12 07:04] LABS: HEMATOCRIT 25.3 % (36.0-47.0); HEMOGLOBIN 8.4 g/dL (12.0-15.5); MEAN CORPUSCULAR HEMOGLOBIN 27.9 pg (27.0-33.4); MEAN CORPUSCULAR HGB CONC 33.4 g/dL (32.0-36.0); MEAN CORPUSCULAR VOLUME 84 fl (80-97); PLATELET COUNT 992 10^3/uL (150-450); RED BLOOD COUNT 3.02 10^6/uL (3.72-5.28); RED CELL DISTRIBUTION WIDTH 16.8 % (11.5-14.0); WHITE BLOOD COUNT 13.7 10^3/uL (4.0-10.5)
[2018-06-12 07:17] LABS: ALANINE AMINOTRANSFERASE 41 U/L (9-52); ALBUMIN 2.5 g/dL (3.5-5.0); ALKALINE PHOSPHATASE 177 U/L (38-126); ANION GAP 5 (5-19); ASPARTATE AMINO TRANSFERASE 27 U/L (14-36); BILIRUBIN,DIRECT 0.2 mg/dL (0.0-0.4); BILIRUBIN,TOTAL 0.2 mg/dL (0.2-1.3); BLOOD UREA NITROGEN 19 mg/dL (7-20); CALCIUM 9.4 mg/dL (8.4-10.2); CARBON DIOXIDE 31 mmol/L (22-30); CHLORIDE 99 mmol/L (98-107); GLUCOSE 114 mg/dL (75-110); SODIUM 135.3 mmol/L (137-145); TOTAL PROTEIN 5.4 g/dL (6.3-8.2)
[2018-06-12 07:39] LABS: ABSOLUTE LYMPHOCYTES# (MANUAL) 0.8 10^3/uL (0.5-4.7); ABSOLUTE MONOCYTES # (MANUAL) 0.3 10^3/uL (0.1-1.4); ABSOLUTE NEUTROPHILS# (MANUAL) 12.6 10^3/uL (1.7-8.2); BASOPHILS % (MANUAL) 0 % (0-2); EOSINOPHILS % (MANUAL) 0 % (0-6); LYMPHOCYTES % (MANUAL) 6 % (13-45); MONOCYTES % (MANUAL) 2 % (3-13); NUCLEATED RED BLOOD CELLS 1 /100 WBC (0); SEGMENTED NEUTROPHILS % (MAN) 92 % (42-78); TOTAL CELLS COUNTED 100
[2018-06-12 07:41] LABS: ANISOCYTOSIS 1+; HYPOCHROMASIA SLIGHT; OVALOCYTES 1+; PLATELET COMMENT INCREASED; POIKILOCYTOSIS 1+; POLYCHROMASIA 1+; TEAR DROP CELLS SLIGHT
[2018-06-12] MEDS ORDERED: OXYCODONE HCL IR 5 MG TABLET PO PRN (09:33)
--- NOTE | 2018-06-12 09:42 | ER Document Report ---
Doctor's Note Notes: 06/12/18 09:37 Patient seen and evaluated. She appears to be in less respiratory distress than when she initially presented to me on 06/09/18. She does have significant wheezing bilaterally. Patient will be started on prednisone 40 mg daily for her COPD, she recieved 125 of solu-medrol I have changed her DuoNeb 4 times daily to albuterol every 4 hours to help with the wheezing. Patient's lab work today appears stable. She is eating and drinking. She does report dyspnea with any kind of movement including to the bedside commode which she states is very difficult to do. She is dyspneic with our conversation and still requires drainage of her large left pleural effusion. [facility] was contacted about 30 minutes ago and is still unable to give an estimated time for transfer. I discussed patient's care with interventional radiology who reviewed her CT scan. The states that they will be able to attempt thoracentesis for some therapeutic benefit while awaiting transfer but they are not sure given the amount of loculations if any quantity of fluid will be able to be drained. Plan for therapeutic thoracentesis today and continue with transfer recommendation for more definitive management. She is still stable for transfer.
[2018-06-12] MEDS: CEFTRIAXONE 1 GM/D5W RTU 1 GM/50 ML RTUPB IV SCH (09:55)
[2018-06-12] MEDS ORDERED: PREDNISONE 20 MG TABLET PO SCH (10:00)
[2018-06-12] MEDS ORDERED: ALBUTEROL SULFATE 0.083% NEB 2.5 MG/3 ML AMPUL NEB SCH (10:00)
[2018-06-12] MEDS: DOCUSATE SODIUM 100 MG CAPSULE PO SCH (10:30)
[2018-06-12] MEDS: AZITHROMYCIN INJ 500 MG VIAL IV SCH (10:38)
--- NOTE | 2018-06-12 12:36 | RADIOLOGY REPORT (SQ) ---
EXAM DESCRIPTION: U/S CHEST COMPLETED DATE/TIME: 06/12/2018 12:13 pm REASON FOR STUDY: left pleural effusion COMPARISON: None. TECHNIQUE: Dynamic and static grayscale images acquired of the localized site of clinical concern an d recorded on PACS. Additional selected color Doppler and spectral images recorded. SITE OF CONCERN: Left pleural space. LIMITATIONS: None. FINDINGS: There is insufficient free fluid for safe ultrasound-guided thoracentesis. IMPRESSION: See above. TECHNICAL DOCUMENTATION: JOB ID: [id number] [employer]- All Rights Reserved Reading location - IP/workstation name: [email or web address]
[2018-06-12] MEDS ORDERED: ACETAMINOPHEN 325 MG TABLET PO PRN (12:51)
[2018-06-12] MEDS ORDERED: ALBUTEROL SULFATE 0.083% NEB 2.5 MG/3 ML AMPUL NEB PRN ×2 (12:56→14:00)
[2018-06-12] MEDS ORDERED: (PENDING PHARMACY ID) (Levothyroxine Sodium [Synthroid] 125 MCG) PO SCH (13:00)
--- NOTE | 2018-06-12 13:11 | PDOC H&P ---
History of Present Illness Admission Date/PCP: 06/12/18 10:42 AMIRA LEAL MD Patient complains of: Shortness of breath History of Present Illness: JUSTYNA WHITAKER is a 52 year old female who presents to the ER with a complaint of shortness of breath. She states she has had shortness of breath for the past several months. March of this year she was diagnosed with lung cancer. Following with oncology in [place]. She missed her appointment last week and her appointment today. Appointments were to schedule her for further treatments for her lung cancer. 3 days ago she developed increasing shortness of breath while she was at home she called EMS and in the ER was found to have a large left loculated pleural effusion. She has been accepted by [facility] however they have no beds thus she is being admitted here until a bed is available at [facility]. She was evaluated by interventional radiology here they did not feel that the pleural effusion was large enough that they could drain it with radiology guidance Past Medical History Cardiac Medical History: Reports: Hypertension Pulmonary Medical History: Reports: Chronic Obstructive Pulmonary Disease (COPD), Sleep Apnea - Hx of CPAP use at home Denies: Tuberculosis Malignancy Medical History: Reports: Cervical Cancer, Lung Cancer Musculoskeltal Medical History: Reports: Arthritis Past Surgical History Past Surgical History: Reports: Cholecystectomy - [address] Cooley., Hysterectomy, Orthopedic Surgery - 3 back surgeries Denies: Pacemaker Social History Smoking Status: Unknown if Ever Smoked Cigarettes Packs Per Day: 3 Hx Recreational Drug Use: No Hx Prescription Drug Abuse: No Family History Family History: DM, Hypertension Parental Family History Reviewed: Yes Children Family History Reviewed: Yes Sibling(s) Family History Reviewed.: Yes Medication/Allergy Home Medications: Furosemide [Lasix 20 mg Tablet] 20 mg PO BID 06/04/13 Levothyroxine Sodium [Synthroid] 125 mcg PO Q6AM 06/04/13 Oxycodone HCl 7.5 mg PO Q6 06/11/18 Allergies/Adverse Reactions: iodine Allergy (Verified 06/12/18 05:26) Shellfish * [Shellfish] Allergy (Verified 06/12/18 05:26) Sulfa (Sulfonamide Antibiotics) Allergy (Verified 06/12/18 05:26) morphine [Morphine] Adverse Reaction (Mild, Verified 06/12/18 05:26) Unknown reaction Physical Exam Vital Signs: Temp Pulse Resp BP Pulse Ox 98.1 F 80 20 158/87 H 95 06/12/18 06:00 06/11/18 07:00 06/12/18 11:01 06/12/18 11:01 06/12/18 11:01 Intake & Output 06/11/18 06/12/18 06/13/18 06:59 06:59 06:59 Intake Total 50 50 50 Balance 50 50 50 General appearance: PRESENT: no acute distress, cooperative, obese Mouth exam: PRESENT: moist, neck supple Neck exam: PRESENT: full ROM. ABSENT: JVD, lymphadenopathy, tenderness, thyromegaly, tracheal deviation Respiratory exam: PRESENT: crackles, rhonchi. ABSENT: accessory muscle use Cardiovascular exam: PRESENT: RRR. ABSENT: gallop, rubs GI/Abdominal exam: PRESENT: normal bowel sounds, soft. ABSENT: ascites, tenderness Extremities exam: ABSENT: pedal edema, tenderness Musculoskeletal exam: PRESENT: full ROM Neurological exam: PRESENT: alert, oriented to person, oriented to place, oriented to time, oriented to situation Results Laboratory Results: 06/12/18 06:47 06/12/18 06:47 06/11/18 06/11/18 06/12/18 13:43 15:09 06:47 WBC Cancelled 22.2 H 13.7 H RBC Cancelled 3.22 L 3.02 L Hgb Cancelled 8.7 L 8.4 L Hct Cancelled 26.8 L 25.3 L MCV Cancelled 83 84 MCH Cancelled 27.2 27.9 MCHC Cancelled 32.6 33.4 RDW Cancelled 16.4 H 16.8 H Plt Count Cancelled 1093 H* 992 H Seg Neutrophils % Cancelled Not Reportable Not Reportable Lymphocytes % Cancelled Not Reportable Not Reportable Monocytes % Cancelled Not Reportable Not Reportable Eosinophils % Cancelled Not Reportable Not Reportable Basophils % Cancelled Not Reportable Not Reportable Absolute Neutrophils Cancelled Not Reportable Not Reportable Absolute Lymphocytes Cancelled Not Reportable Not Reportable Absolute Monocytes Cancelled Not Reportable Not Reportable Absolute Eosinophils Cancelled Not Reportable Not Reportable Absolute Basophils Cancelled Not Reportable Not Reportable Sodium Potassium Chloride Carbon Dioxide Anion Gap BUN Creatinine Est GFR ( Amer) Est GFR (Non-Af Amer) Glucose Calcium Total Bilirubin AST ALT Alkaline Phosphatase Total Protein Albumin 06/12/18 06:47 WBC RBC Hgb Hct MCV MCH MCHC RDW Plt Count Seg Neutrophils % Lymphocytes % Monocytes % Eosinophils % Basophils % Absolute Neutrophils Absolute Lymphocytes Absolute Monocytes Absolute Eosinophils Absolute Basophils Sodium 135.3 L Potassium 5.0 Chloride 99 Carbon Dioxide 31 H Anion Gap 5 BUN 19 Creatinine 0.53 Est GFR ( Amer) > 60 Est GFR (Non-Af Amer) > 60 Glucose 114 H Calcium 9.4 Total Bilirubin 0.2 AST 27 ALT 41 Alkaline Phosphatase 177 H Total Protein 5.4 L Albumin 2.5 L 06/09/18 20:00 Clean Catch Midstream Urine Culture - Final NO GROWTH 2 DAYS 06/09/18 16:25 Troponin I < 0.012 Impressions: Chest X-Ray 06/09/18 16:30 IMPRESSION: Moderate size left pleural effusion. Chest/Abdomen CTA 06/09/18 16:50 IMPRESSION: 1. Large, loculated left-sided pleural effusion. Atelectasis in the left lung base with no definite mass lesions identified, however recommend reimaging after resolution to ensure no underlying mass. 2. No evidence of pulmonary embolus. Chest Ultrasound 06/12/18 09:44 IMPRESSION: See above. Assessment and Plan - Diagnosis (1) Pleural effusion, left Is this a current diagnosis for this admission?: Yes Plan: Awaiting transfer to [facility]. Seen by interventional radiology and they felt at this time there is no radiological intervention to help with the pleural effusion. Continue to monitor. (2) Leukocytosis Is this a current diagnosis for this admission?: Yes Plan: Present on admission and improving. We will continue azithromycin and Rocephin for now however we will that pneumonia is unlikely. Feel that her leukocytosis is secondary to her lung cancer. (3) Hyponatremia Is this a current diagnosis for this admission?: Yes Plan: Hyponatremia is resolved. May be secondary to her lung cancer as well as to her diuretic use. (4) Thrombocytosis Is this a current diagnosis for this admission?: Yes Plan: No significant change at this time we will continue to monitor. - Time Time Spent with patient: 25-34 minutes Medications reviewed and adjusted accordingly: Yes Anticipated discharge: [facility]
[2018-06-12] MEDS: IPRATROPIUM/ALBUTEROL 0.5-2.5 MG/3 ML AMPUL NEB SCH ×2 (14:02→20:17)
[2018-06-12] MEDS ORDERED: LEVOTHYROXINE SODIUM 0.025 MG TABLET PO ONE (15:00)
[2018-06-12] MEDS ORDERED: LEVOTHYROXINE SODIUM 0.1 MG TABLET PO ONE (15:00)
[2018-06-12] MEDS ORDERED: NICOTINE 21 MG/24 HR PATCH.TD24 TD SCH (17:45)
[2018-06-12] MEDS ORDERED: OXYCODONE HCL IR 5 MG TABLET PO SCH (18:00)
[2018-06-12] MEDS ORDERED: FUROSEMIDE 20 MG TABLET PO SCH (18:00)
[2018-06-12 20:10] VITALS: BP 156/79
--- NOTE | 2018-06-12 20:22 | PDOC TRANSFER SUMMARY ---
General Admission Date/PCP: 06/12/18 10:42 AMIRA LEAL MD - Transfer Diagnosis (1) Pleural effusion, left Is this a current diagnosis for this admission?: Yes (2) Hyponatremia Is this a current diagnosis for this admission?: Yes (3) Leukocytosis Is this a current diagnosis for this admission?: Yes (4) Thrombocytosis Is this a current diagnosis for this admission?: Yes - Transfer Medications Home Medications: Furosemide [Lasix 20 mg Tablet] 20 mg PO BID 06/04/13 Levothyroxine Sodium [Synthroid] 125 mcg PO Q6AM 06/04/13 Oxycodone HCl 7.5 mg PO Q6 06/11/18 Transfer Medications: Current Medications Acetaminophen (Tylenol 325 Mg Tablet) 650 mg PO Q6HP PRN PRN Reason: FOR PAIN Stop: 07/12/18 12:50 Albuterol (Ventolin 0.083% Neb 2.5 Mg/3 Ml Ampul) 2.5 mg NEB RTQ4HP PRN PRN Reason: SHORTNESS OF BREATH Stop: 07/12/18 12:55 Albuterol/Ipratropium (Duoneb 3 Ml Ampul) 3 ml NEB RTQ6 [facility] Stop: 07/12/18 13:59 Last Admin: 06/12/18 14:02 Dose: 3 ml Documented by: Docusate Sodium (Colace 100 Mg Capsule) 100 mg PO DAILY [facility] Stop: 07/11/18 09:59 Last Admin: 06/12/18 10:30 Dose: 100 mg Documented by: Enoxaparin Sodium (Lovenox Inj 40 Mg/0.4 Ml Disp.Syrin) 40 mg SUBCUT DAILY [facility] Stop: 07/13/18 09:59 Furosemide (Lasix 20 Mg Tablet) 20 mg PO BID [facility] Stop: 07/12/18 17:59 Last Admin: 06/12/18 17:51 Dose: 20 mg Documented by: Ceftriaxone Sodium/Dextrose (Rocephin Rtu 1 Gm/D5w 50 Ml Premix) 1 gm in 50 mls @ 100 mls/hr IV DAILY [facility] Stop: 06/17/18 09:59 Last Infusion: 06/12/18 10:28 Dose: Infused Documented by: Azithromycin 500 mg/ Dextrose 250 mls @ 250 mls/hr IV DAILY [facility] Stop: 06/17/18 09:59 Levothyroxine Sodium (Synthroid 0.1 Mg Tablet) 0.1 mg PO Q6AM [facility] Stop: 07/13/18 05:59 Levothyroxine Sodium (Synthroid 0.025 Mg Tablet) 0.025 mg PO Q6AM [facility] Stop: 07/13/18 05:59 Nicotine (Nicoderm 21 Mg/24 Hr Transderm Patch) 1 each TD DAILY [facility] Stop: 07/12/18 17:44 Last Admin: 06/12/18 17:51 Dose: 1 each Documented by: Oxycodone HCl (Oxy-Ir 5 Mg Tablet) 7.5 mg PO Q6 [facility] Stop: 06/19/18 17:59 Last Admin: 06/12/18 17:50 Dose: 7.5 mg Documented by: Prednisone (Deltasone 20 Mg Tablet) 40 mg PO DAILY [facility] Stop: 07/12/18 09:59 Last Admin: 06/12/18 10:30 Dose: 40 mg Documented by: - Allergies Allergies/Adverse Reactions: iodine Allergy (Verified 06/12/18 05:26) Shellfish * [Shellfish] Allergy (Verified 06/12/18 05:26) Sulfa (Sulfonamide Antibiotics) Allergy (Verified 06/12/18 05:26) morphine [Morphine] Adverse Reaction (Mild, Verified 06/12/18 05:26) Unknown reaction Hospital Course Hospital Course: JUSTYNA WHITAKER is a 52 year old female who presents to the ER with a complaint of shortness of breath. She states she has had shortness of breath for the past several months. March of this year she was diagnosed with lung cancer. Following with oncology in [place]. She missed her appointment last week and her appointment today. Appointments were to schedule her for further treatments for her lung cancer. 3 days ago she developed increasing shortness of breath while she was at home she called EMS and in the ER was found to have a large left loculated pleural effusion. She has been accepted by [facility] however they have no beds thus she is being admitted here until a bed is available at [facility]. She was evaluated by interventional radiology here they did not feel that the pleural effusion was large enough that they could drain it with radiology guidance The patient remained stable throughout her hospital course and a bed became available at [facility] on the late afternoon/early evening of 06/12/2018. Patient will subsequently be transferred to [facility] for further evaluation and treatment with her usual oncologist and treatment team per her wishes. Physical Exam Vital Signs: Temp Pulse Resp BP Pulse Ox 98.3 F 94 20 156/79 H 99 06/12/18 20:00 06/12/18 20:00 06/12/18 20:00 06/12/18 20:00 06/12/18 20:00 Intake & Output 06/10/18 06/11/18 06/12/18 23:59 23:59 23:59 Intake Total 50 50 620 Output Total 1025 Balance -975 50 620 Exam: General appearance: PRESENT: no acute distress, cooperative, obese Mouth exam: PRESENT: moist, neck supple Neck exam: PRESENT: full ROM. ABSENT: JVD, lymphadenopathy, tenderness, thyromegaly, tracheal deviation Respiratory exam: PRESENT: crackles, rhonchi. ABSENT: accessory muscle use Cardiovascular exam: PRESENT: RRR. ABSENT: gallop, rubs GI/Abdominal exam: PRESENT: normal bowel sounds, soft. ABSENT: ascites, tender ness Extremities exam: ABSENT: pedal edema, tenderness Musculoskeletal exam: PRESENT: full ROM Neurological exam: PRESENT: alert, oriented to person, oriented to place, oriented to time, oriented to situation Results Laboratory Results: 06/12/18 06:47 06/12/18 06:47 06/12/18 06/12/18 06:47 06:47 WBC 13.7 H RBC 3.02 L Hgb 8.4 L Hct 25.3 L MCV 84 MCH 27.9 MCHC 33.4 RDW 16.8 H Plt Count 992 H Seg Neutrophils % Not Reportable Lymphocytes % Not Reportable Monocytes % Not Reportable Eosinophils % Not Reportable Basophils % Not Reportable Absolute Neutrophils Not Reportable Absolute Lymphocytes Not Reportable Absolute Monocytes Not Reportable Absolute Eosinophils Not Reportable Absolute Basophils Not Reportable Sodium 135.3 L Potassium 5.0 Chloride 99 Carbon Dioxide 31 H Anion Gap 5 BUN 19 Creatinine 0.53 Est GFR ( Amer) > 60 Est GFR (Non-Af Amer) > 60 Glucose 114 H Calcium 9.4 Total Bilirubin 0.2 AST 27 ALT 41 Alkaline Phosphatase 177 H Total Protein 5.4 L Albumin 2.5 L 06/09/18 16:25 Troponin I < 0.012 Impressions: Chest X-Ray 06/09/18 16:30 IMPRESSION: Moderate size left pleural effusion. Chest/Abdomen CTA 06/09/18 16:50 IMPRESSION: 1. Large, loculated left-sided pleural effusion. Atelectasis in the left lung base with no definite mass lesions identified, however recommend reimaging after resolution to ensure no underlying mass. 2. No evidence of pulmonary embolus. Chest Ultrasound 06/12/18 09:44 IMPRESSION: See above. Plan Discharge Plan: Transfer to [facility] as prearranged bed is now available. Time Spent: Less than 30 Minutes
[2018-06-13] MEDS ORDERED: LEVOTHYROXINE SODIUM 0.1 MG TABLET PO SCH (06:00)
[2018-06-13] MEDS ORDERED: LEVOTHYROXINE SODIUM 0.025 MG TABLET PO SCH (06:00)
[2018-06-13] MEDS ORDERED: AZITHROMYCIN 500 MG in DEXTROSE 5%-WATER 250 ML IV SCH (10:00)
[2018-06-13] MEDS ORDERED: ENOXAPARIN SODIUM INJ 40 MG/0.4 ML DISP.SYRIN SUBCUT SCH (10:00)
== END 2018-06-12 22:26 | disposition short-term general hospital (02) | DRG 187 ==
LOC: ER 16:03 → EH 06-12 10:42 → 4S 06-12 12:12
PROVIDERS: ADMIT Internal Medicine; ATTEND Internal Medicine
PROC: 3E0F73Z Introduction of Anti-inflammatory into Respiratory Tract, Via Natural or Artificial Opening (ICD-10-PCS; principal; 2018-06-12)
DX: J90 Pleural effusion, not elsewhere classified (principal); E87.1 Hypo-osmolality and hyponatremia; C34.92 Malignant neoplasm of unspecified part of left bronchus or lung; D47.3 Essential (hemorrhagic) thrombocythemia; I10 Essential (primary) hypertension; J44.9 Chronic obstructive pulmonary disease, unspecified; G47.30 Sleep apnea, unspecified; C53.9 Malignant neoplasm of cervix uteri, unspecified; M19.90 Unspecified osteoarthritis, unspecified site; F17.210 Nicotine dependence, cigarettes, uncomplicated; Z79.899 Other long term (current) drug therapy; Z79.890 Hormone replacement therapy; Z88.2 Allergy status to sulfonamides; Z88.8 Allergy status to other drugs, medicaments and biological substances; Z88.6 Allergy status to analgesic agent; Z91.013 Allergy to seafood; Z79.891 Long term (current) use of opiate analgesic; Z99.81 Dependence on supplemental oxygen; Z90.49 Acquired absence of other specified parts of digestive tract; Z90.710 Acquired absence of both cervix and uterus; Z83.3 Family history of diabetes mellitus; Z82.49 Family history of ischemic heart disease and other diseases of the circulatory system
CPT/HCPCS: 36415; 36600; 71045; 71275; 76604; 80048; 80053; 81001; 82803; 83605; 84484; 85025; 85610; 87040; 87086; 93005; 93010; 94640; 96361; 96365; 96366; 96367; 96375; 96376; 99285; J0456; J0696; J1170; J1200; J2930; J7030; J7512; J7620; S0028